=== PATIENT | male | born 1940 | race Caucasian/White ===

== ENCOUNTER 2018-12-24 01:29 | Inpatient (IN) ==
[2018-12-24] MEDS ORDERED: SODIUM CHLORIDE 0.9% 1,000 ML IV STA ×2 (01:53→03:07)
[2018-12-24] MEDS ORDERED: VANCOMYCIN INJ 1,750 MG in SODIUM CHLORIDE 0.9% 250 ML IV STA (01:53)
[2018-12-24] MEDS ORDERED: AZTREONAM 2,000 MG in SODIUM CHLORIDE 0.9% 100 ML IV STA (01:55)
[2018-12-24] MEDS ORDERED: VANCOMYCIN INJ 1,750 MG in SODIUM CHLORIDE 0.9% 500 ML IV STA (01:57)
[2018-12-24 02:07] LABS: Basophils % 0.3 % (0.0-0.8); Eosinophils % 0.1 % (0.00-10.9); Hematocrit 42.5 VOL% (42.0-52.0); Hemoglobin 14.7 GM/DL (14.0-18.0); Immature Granulocytes % 0.6 %; Immature Granulocytes Absolute 0.09 #; Lymphocytes # 2.7 10*3/uL (1.4-4.0); Lymphocytes % 18.7 % (21.2-54.2); Mean Corpuscular HGB Conc 34.6 GM/DL (32-36); Mean Corpuscular Volume 90.2 FL (87-102); Mean Platelet Volume 9.7 FL (9.6-12.0); Monocytes % 6.1 % (1.7-12.7); Neutrophils % 74.2 % (38.7-73.9); Platelet Count 135 T/CUMM (130-400); Red Blood Count 4.71 MC/CUMM (3.8-5.5); Red Cell Distribution Width 12.7 % (9.3-17.3); White Blood Count 14.3 T/CUMM (4-12)
[2018-12-24 02:11] LABS: Albumin 3.4 G/DL (3.4-5.0); Bilirubin,Total 0.4 MG/DL (0.2-1.0); Calcium 8.6 MG/DL (8.5-10.1); Osmolality,Calculated 279.1 MOS/KG (273-304); Total Protein 6.3 G/DL (6.4-8.3)
[2018-12-24 04:02] LABS: Apearance,Urine CLEAR (Clear); Bilirubin,Urine Negative (Negative); Blood, Urine Negative (Negative); Glucose,Urine (UA) Negative (Negative); Ketones,Urine Negative (Negative); Mucus,Urine Occasional /LPF (Occasional); Nitrite,Urine Negative (Negative); Protein,Urine Negative; RBC,Urine 1 /HPF (0-4); Urine Color Yellow (Yellow); Urine Specific Gravity 1.049 (1.001-1.035); Urine Urobilinogen < 2.0 EU/DL (0.2-1.0); WBC,Urine <1 /HPF (0-6)
[2018-12-24] MEDS ORDERED: ONDANSETRON 4 MG/2 ML VIAL IV PRN (06:11)
[2018-12-24] MEDS ORDERED: DEXTROSE 50% 25 GM/50 ML VIAL IV PRN (06:11)
[2018-12-24] MEDS ORDERED: GLUCAGON 1 MG VIAL IM PRN (06:11)
[2018-12-24] MEDS ORDERED: MAGNESIUM SULF RIDER 2 GM in PREMIX 1 EACH IV PRN (07:00)
[2018-12-24] MEDS ORDERED: MAGNESIUM SULF RIDER 4 GM in PREMIX 1 EACH IV PRN (07:00)
[2018-12-24] MEDS: INSULIN LISPRO 100 UNIT/ML SUBCUT SCH ×4 (08:24→21:20)
[2018-12-24] MEDS: SODIUM CHLORIDE 0.9% 1,000 ML IV SCH (08:39)
[2018-12-24] MEDS: metroNIDAZOLE INJ 500 MG in PREMIX 1 EACH IV SCH ×2 (08:41→14:59)
[2018-12-24] MEDS ORDERED: ENOXAPARIN 40 MG/0.4 ML SYRINGE SUBCUT SCH (09:00)
[2018-12-24] MEDS: CIPROFLOXACIN INJ 400 MG in PREMIX 1 EACH IV SCH ×2 (10:36→21:13)
[2018-12-24] MEDS: HYDROXYCHLOROQUINE 200 MG TABLET PO SCH ×2 (14:38→21:20)
[2018-12-24] MEDS: DUTASTERIDE 0.5 MG CAPSULE PO SCH (14:38)
[2018-12-24] MEDS: TAMSULOSIN 0.4 MG CAPSULE PO SCH ×2 (14:38→21:18)
[2018-12-24] MEDS: CHOLECALCIFEROL 1,000 UNIT TABLET PO SCH (14:38)
[2018-12-24] MEDS: MULTIVITAMIN (CENTRUM) TABLET PO SCH (14:39)
[2018-12-24] MEDS: MELOXICAM 7.5 MG TABLET PO SCH (14:39)
[2018-12-24] MEDS: ASPIRIN EC 81 MG TABLET PO SCH (14:39)
[2018-12-24] MEDS: MONTELUKAST 10 MG TABLET PO SCH (14:39)
[2018-12-24] MEDS: FOLIC ACID 1 MG TABLET PO SCH (14:39)
[2018-12-24] MEDS: GABAPENTIN 100 MG CAPSULE PO SCH ×2 (14:39→21:18)
[2018-12-24] MEDS: PANTOPRAZOLE 40 MG TABLET PO SCH (14:40)
[2018-12-24] MEDS: DULoxetine 30 MG CAPSULE PO SCH (14:40)
[2018-12-24] MEDS: LISINOPRIL/HCTZ 20-25 MG TABLET PO SCH (14:40)
[2018-12-24] MEDS: Glucosam-Chon-Msm1-C-Mang-Bosw [Osteo Bi-Flex Triple Strength] 1 PO SCH ×2 (14:41→21:59)
[2018-12-24] MEDS: TIMOLOL 0.5% OPH SOLN 5 ML BOTTLE BOTH EYES SCH (14:41)
[2018-12-24] MEDS: carvediloL 6.25 MG TABLET PO SCH (17:12)
[2018-12-24] MEDS: ACETAMINOPHEN 325 MG TABLET PO PRN ×2 (17:13→21:18)
[2018-12-25] MEDS: metroNIDAZOLE INJ 500 MG in PREMIX 1 EACH IV SCH ×4 (00:52→23:48)
[2018-12-25] MEDS: SODIUM CHLORIDE 0.9% 1,000 ML IV SCH ×2 (03:27→21:52)
[2018-12-25 05:04] LABS: Basophils % 0.1 % (0.0-0.8); Hematocrit 36.9 VOL% (42.0-52.0); Hemoglobin 12.4 GM/DL (14.0-18.0); Immature Granulocytes % 0.5 %; Immature Granulocytes Absolute 0.04 #; Lymphocytes # 1.9 10*3/uL (1.4-4.0); Lymphocytes % 23.5 % (21.2-54.2); Mean Corpuscular HGB Conc 33.6 GM/DL (32-36); Mean Corpuscular Volume 91.8 FL (87-102); Mean Platelet Volume 9.7 FL (9.6-12.0); Monocytes % 8.6 % (1.7-12.7); Neutrophils % 67.3 % (38.7-73.9); Platelet Count 105 T/CUMM (130-400); Red Blood Count 4.02 MC/CUMM (3.8-5.5); Red Cell Distribution Width 13.1 % (9.3-17.3); White Blood Count 8.2 T/CUMM (4-12)
[2018-12-25 05:24] LABS: Band Neutrophils 8 % (0-10); Hypochromasia 1+; Lymphocytes 25 % (20-55); Platelet Estimate Decreased; Segmented Neutrophils 61 % (50-85); Total Cells Counted 100
[2018-12-25 05:32] LABS: Calcium 8.9 MG/DL (8.5-10.1); Osmolality,Calculated 278.7 MOS/KG (273-304)
[2018-12-25] MEDS: ACETAMINOPHEN 325 MG TABLET PO PRN (06:11)
[2018-12-25] MEDS: LEVOTHYROXINE 75 MCG TABLET PO SCH (06:11)
[2018-12-25] MEDS: INSULIN LISPRO 100 UNIT/ML SUBCUT SCH ×4 (08:39→20:58)
[2018-12-25] MEDS: ASPIRIN EC 81 MG TABLET PO SCH (09:31)
[2018-12-25] MEDS: MULTIVITAMIN (CENTRUM) TABLET PO SCH (09:31)
[2018-12-25] MEDS: FERROUS SULFATE ER 140 MG TABLET PO SCH (09:32)
[2018-12-25] MEDS: MONTELUKAST 10 MG TABLET PO SCH (09:32)
[2018-12-25] MEDS: MELOXICAM 7.5 MG TABLET PO SCH (09:32)
[2018-12-25] MEDS: CHOLECALCIFEROL 1,000 UNIT TABLET PO SCH (09:32)
[2018-12-25] MEDS: LISINOPRIL/HCTZ 20-25 MG TABLET PO SCH (09:32)
[2018-12-25] MEDS: GABAPENTIN 100 MG CAPSULE PO SCH ×2 (09:32→21:50)
[2018-12-25] MEDS: FOLIC ACID 1 MG TABLET PO SCH (09:32)
[2018-12-25] MEDS: DUTASTERIDE 0.5 MG CAPSULE PO SCH (09:32)
[2018-12-25] MEDS: DULoxetine 30 MG CAPSULE PO SCH (09:33)
[2018-12-25] MEDS: TIMOLOL 0.5% OPH SOLN 5 ML BOTTLE BOTH EYES SCH (09:33)
[2018-12-25] MEDS: PANTOPRAZOLE 40 MG TABLET PO SCH (09:33)
[2018-12-25] MEDS: TAMSULOSIN 0.4 MG CAPSULE PO SCH ×2 (09:33→21:49)
[2018-12-25] MEDS: HYDROXYCHLOROQUINE 200 MG TABLET PO SCH ×2 (09:33→21:50)
[2018-12-25] MEDS: carvediloL 6.25 MG TABLET PO SCH ×2 (09:33→16:25)
[2018-12-25] MEDS: CIPROFLOXACIN INJ 400 MG in PREMIX 1 EACH IV SCH ×2 (09:34→21:49)
[2018-12-25] MEDS: Glucosam-Chon-Msm1-C-Mang-Bosw [Osteo Bi-Flex Triple Strength] 1 PO SCH ×2 (09:34→22:05)
[2018-12-25] MEDS ORDERED: SODIUM CHLORIDE 0.9% 1,000 ML IV ONE (17:04)
[2018-12-25] MEDS: TICAGRELOR 90 MG TABLET PO SCH (21:49)
[2018-12-26] MEDS: SODIUM CHLORIDE 0.9% 1,000 ML IV SCH
[2018-12-26 05:16] LABS: Basophils % 0.2 % (0.0-0.8); Eosinophils # 0.1 10*3/uL (0.0-0.87); Eosinophils % 1.1 % (0.00-10.9); Hematocrit 33.7 VOL% (42.0-52.0); Hemoglobin 11.5 GM/DL (14.0-18.0); Immature Granulocytes % 0.9 %; Immature Granulocytes Absolute 0.05 #; Lymphocytes # 1.7 10*3/uL (1.4-4.0); Lymphocytes % 32.1 % (21.2-54.2); Mean Corpuscular HGB Conc 34.1 GM/DL (32-36); Mean Corpuscular Volume 90.3 FL (87-102); Mean Platelet Volume 9.8 FL (9.6-12.0); Monocytes % 12.7 % (1.7-12.7); Platelet Count 101 T/CUMM (130-400); Red Blood Count 3.73 MC/CUMM (3.8-5.5); Red Cell Distribution Width 12.9 % (9.3-17.3); White Blood Count 5.3 T/CUMM (4-12)
[2018-12-26 05:32] LABS: Calcium 8.3 MG/DL (8.5-10.1); Osmolality,Calculated 280.4 MOS/KG (273-304)
[2018-12-26 05:37] LABS: Calcium 8.2 MG/DL (8.5-10.1); Osmolality,Calculated 279.4 MOS/KG (273-304)
[2018-12-26 05:39] LABS: Hypochromasia 1+; Platelet Estimate Decreased
[2018-12-26] MEDS: LEVOTHYROXINE 75 MCG TABLET PO SCH (06:56)
[2018-12-26] MEDS: INSULIN LISPRO 100 UNIT/ML SUBCUT SCH ×2 (07:03→12:06)
[2018-12-26] MEDS: metroNIDAZOLE INJ 500 MG in PREMIX 1 EACH IV SCH (07:39)
[2018-12-26] MEDS ORDERED: POTASSIUM CHLORIDE 20 MEQ TABLET PO ONE (07:57)
[2018-12-26] MEDS: ASPIRIN EC 81 MG TABLET PO SCH (09:04)
[2018-12-26] MEDS: FERROUS SULFATE ER 140 MG TABLET PO SCH (09:04)
[2018-12-26] MEDS: MELOXICAM 7.5 MG TABLET PO SCH (09:04)
[2018-12-26] MEDS: DUTASTERIDE 0.5 MG CAPSULE PO SCH (09:04)
[2018-12-26] MEDS: PANTOPRAZOLE 40 MG TABLET PO SCH (09:04)
[2018-12-26] MEDS: TICAGRELOR 90 MG TABLET PO SCH (09:04)
[2018-12-26] MEDS: DULoxetine 30 MG CAPSULE PO SCH (09:05)
[2018-12-26] MEDS: FOLIC ACID 1 MG TABLET PO SCH (09:05)
[2018-12-26] MEDS: carvediloL 6.25 MG TABLET PO SCH (09:05)
[2018-12-26] MEDS: CHOLECALCIFEROL 1,000 UNIT TABLET PO SCH (09:05)
[2018-12-26] MEDS: HYDROXYCHLOROQUINE 200 MG TABLET PO SCH (09:05)
[2018-12-26] MEDS: LISINOPRIL/HCTZ 20-25 MG TABLET PO SCH (09:05)
[2018-12-26] MEDS: TAMSULOSIN 0.4 MG CAPSULE PO SCH (09:06)
[2018-12-26] MEDS: TIMOLOL 0.5% OPH SOLN 5 ML BOTTLE BOTH EYES SCH (09:06)
[2018-12-26] MEDS: MONTELUKAST 10 MG TABLET PO SCH (09:06)
[2018-12-26] MEDS: CIPROFLOXACIN INJ 400 MG in PREMIX 1 EACH IV SCH (09:06)
[2018-12-26] MEDS: GABAPENTIN 100 MG CAPSULE PO SCH (09:06)
[2018-12-26] MEDS: MULTIVITAMIN (CENTRUM) TABLET PO SCH (09:06)
[2018-12-26 12:54] VITALS: BP 114/77
[2018-12-26 18:06] LABS: CDT Result Negative (Negative); CDT Specimen Source STOOL
== END 2018-12-26 14:33 | disposition home or self-care (01) | DRG 867 ==
LOC: EDUNIT# → N.ED 01:29 → N.EDINP 05:22 → N.2E 06:19
PROVIDERS: ADMIT Internal Medicine; ATTEND Internal Medicine

== ENCOUNTER 2019-01-25 13:53 | Observation (INO) ==
[2019-01-25 15:44] LABS: Basophils % 0.4 % (0.0-0.8); Eosinophils # 0.3 10*3/uL (0.0-0.87); Hematocrit 40.7 VOL% (42.0-52.0); Hemoglobin 13.5 GM/DL (14.0-18.0); Immature Granulocytes % 0.5 %; Immature Granulocytes Absolute 0.04 #; Lymphocytes % 37.9 % (21.2-54.2); Mean Corpuscular HGB Conc 33.2 GM/DL (32-36); Mean Corpuscular Volume 92.3 FL (87-102); Mean Platelet Volume 10.3 FL (9.6-12.0); Monocytes % 8.6 % (1.7-12.7); Neutrophils % 48.6 % (38.7-73.9); Platelet Count 153 T/CUMM (130-400); Red Blood Count 4.41 MC/CUMM (3.8-5.5); Red Cell Distribution Width 13.8 % (9.3-17.3); White Blood Count 7.8 T/CUMM (4-12)
[2019-01-25 16:02] LABS: Alanine Aminotransferase 24 U/L (16-61); Albumin 3.5 G/DL (3.4-5.0); Alkaline Phosphatase 61 U/L (45-117); Aspartate Amino Transferase 19 U/L (0-37); Bilirubin,Total < 0.39 MG/DL (0.2-1.0); Blood Urea Nitrogen 20 MG/DL (7-18); Calcium 8.5 MG/DL (8.5-10.1); Estimated Glom Filtration Rate 79 ML/MIN; Glucose 132 MG/DL (74-106); Osmolality,Calculated 285.3 MOS/KG (273-304); Total Protein 6.2 G/DL (6.4-8.3)
[2019-01-25] MEDS ORDERED: GLUCAGON 1 MG VIAL IM PRN ×2 (17:27)
[2019-01-25] MEDS ORDERED: DEXTROSE 50% 25 GM/50 ML VIAL IV PRN ×2 (17:27)
[2019-01-25] MEDS ORDERED: MECLIZINE 25 MG TABLET PO PRN (17:33)
[2019-01-25] MEDS ORDERED: LEVOFLOXACIN INJ 500 MG in PREMIX 1 EACH IV SCH (18:00)
[2019-01-25] MEDS ORDERED: FINASTERIDE 5 MG TABLET PO SCH (21:00)
[2019-01-25] MEDS ORDERED: glipiZIDE 5 MG TABLET PO SCH (21:00)
[2019-01-25] MEDS ORDERED: BRINZOLAMIDE 1% OPH SUSP 10 ML BOTTLE BOTH EYES SCH (21:00)
[2019-01-25] MEDS ORDERED: DONEPEZIL 5 MG TABLET PO SCH (21:00)
[2019-01-25] MEDS ORDERED: MONTELUKAST 10 MG TABLET PO SCH (21:00)
[2019-01-25] MEDS: GABAPENTIN 100 MG CAPSULE PO SCH (21:27)
[2019-01-25] MEDS: DOCUSATE SODIUM 100 MG CAPSULE PO SCH (21:27)
[2019-01-25] MEDS: carvediloL 6.25 MG TABLET PO SCH (21:28)
[2019-01-25] MEDS: TICAGRELOR 90 MG TABLET PO SCH (21:28)
[2019-01-25] MEDS: INSULIN REGULAR 100 UNIT/ML SUBCUT SCH (22:00)
[2019-01-25] MEDS: HYDROXYCHLOROQUINE 200 MG TABLET PO SCH (23:22)
[2019-01-25] MEDS: TAMSULOSIN 0.4 MG CAPSULE PO SCH (23:22)
[2019-01-26 05:07] LABS: Basophils % 0.4 % (0.0-0.8); Eosinophils # 0.3 10*3/uL (0.0-0.87); Eosinophils % 4.1 % (0.00-10.9); Hematocrit 38.3 VOL% (42.0-52.0); Hemoglobin 12.7 GM/DL (14.0-18.0); Immature Granulocytes % 0.9 %; Immature Granulocytes Absolute 0.07 #; Lymphocytes # 3.7 10*3/uL (1.4-4.0); Lymphocytes % 44.6 % (21.2-54.2); Mean Corpuscular HGB Conc 33.2 GM/DL (32-36); Mean Corpuscular Volume 92.1 FL (87-102); Mean Platelet Volume 10.7 FL (9.6-12.0); Monocytes % 10.4 % (1.7-12.7); Neutrophils % 39.6 % (38.7-73.9); Platelet Count 144 T/CUMM (130-400); Red Blood Count 4.16 MC/CUMM (3.8-5.5); Red Cell Distribution Width 13.7 % (9.3-17.3); White Blood Count 8.2 T/CUMM (4-12)
[2019-01-26 05:40] LABS: Free T4 (Free Thyroxine) 0.87 NG/DL (0.76-1.46); Thyroid Stimulating Hormone 2.29 uIU/ml (0.358-3.74)
[2019-01-26] MEDS ORDERED: LEVOTHYROXINE 75 MCG TABLET PO SCH (06:30)
[2019-01-26] MEDS ORDERED: MAGNESIUM SULF RIDER 4 GM in PREMIX 1 EACH IV PRN (07:53)
[2019-01-26] MEDS ORDERED: MAGNESIUM SULF RIDER 2 GM in PREMIX 1 EACH IV PRN (07:53)
[2019-01-26] MEDS ORDERED: MULTIVITAMIN (CENTRUM) TABLET PO SCH (09:00)
[2019-01-26] MEDS ORDERED: ASPIRIN EC 81 MG TABLET PO SCH (09:00)
[2019-01-26] MEDS ORDERED: TIMOLOL 0.5% OPH SOLN 5 ML BOTTLE BOTH EYES SCH (09:00)
[2019-01-26] MEDS ORDERED: LISINOPRIL/HCTZ 20-25 MG TABLET PO SCH (09:00)
[2019-01-26] MEDS ORDERED: FOLIC ACID 1 MG TABLET PO SCH (09:00)
[2019-01-26] MEDS ORDERED: DULoxetine 30 MG CAPSULE PO SCH (09:00)
[2019-01-26] MEDS ORDERED: PANTOPRAZOLE 40 MG TABLET PO SCH (09:00)
[2019-01-26] MEDS: INSULIN REGULAR 100 UNIT/ML SUBCUT SCH ×2 (09:21→12:48)
[2019-01-26 09:49] LABS: Calcium 8.7 MG/DL (8.5-10.1); Osmolality,Calculated 288.8 MOS/KG (273-304)
[2019-01-26] MEDS ORDERED: SODIUM CHLORIDE 0.45% 1,000 ML IV SCH (10:00)
[2019-01-26] MEDS: GABAPENTIN 100 MG CAPSULE PO SCH (10:06)
[2019-01-26] MEDS: TICAGRELOR 90 MG TABLET PO SCH (10:07)
[2019-01-26] MEDS: DOCUSATE SODIUM 100 MG CAPSULE PO SCH (10:07)
[2019-01-26] MEDS: carvediloL 6.25 MG TABLET PO SCH (10:07)
[2019-01-26] MEDS: TAMSULOSIN 0.4 MG CAPSULE PO SCH (12:46)
[2019-01-26] MEDS: HYDROXYCHLOROQUINE 200 MG TABLET PO SCH (12:47)
[2019-01-26 13:37] LABS: Apearance,Urine CLEAR (Clear); Bilirubin,Urine Negative (Negative); Blood, Urine Negative (Negative); Glucose,Urine (UA) Negative (Negative); Ketones,Urine Negative (Negative); Mucus,Urine Occasional /LPF (Occasional); Nitrite,Urine Negative (Negative); Protein,Urine Negative; RBC,Urine 1 /HPF (0-4); Squamous Epithelial Cell,Urine Occasional /HPF (0-10); Urine Color Yellow (Yellow); Urine Specific Gravity 1.011 (1.001-1.035); Urine Urobilinogen < 2.0 EU/DL (0.2-1.0); WBC,Urine 1 /HPF (0-6)
[2019-01-26 16:26] VITALS: BP 111/70
== END 2019-01-26 18:05 | disposition home or self-care (01) ==
LOC: N.ED 13:53 → N.EDINP 13:53 → N.5E 17:46 → N.2W 18:29
PROVIDERS: ADMIT Internal Medicine; ATTEND Internal Medicine